=== PATIENT | male | born 1985 | race Caucasian/White ===

== ENCOUNTER 2018-09-14 00:44 | Emergency (ER) | payer OTHER ==
--- NOTE | 2018-09-14 07:55 | RAD ---
XR Finger(s) Lt Min 2 View History: [Fall. Pain.] Comparison: None. Findings: There is a flexion deformity distal interphalangeal joint middle finger. This suggests an e xtensor tendon injury. Soft tissue swelling. Impression: Flexion deformity distal interphalangeal joint middle finger suggesting extensor tendon i njury. MRI may be beneficial if clinically warranted.
== END 2018-09-14 01:28 | disposition home or self-care (01) ==
LOC: ERS 00:44
DX: S66.393A Other injury of extensor muscle, fascia and tendon of left middle finger at wrist and hand level, initial encounter (principal); M20.012 Mallet finger of left finger(s); J45.909 Unspecified asthma, uncomplicated; W10.9XXA Fall (on) (from) unspecified stairs and steps, initial encounter